=== PATIENT | male | born 1960 | race Caucasian/White ===

== ENCOUNTER 2017-07-15 16:48 | Observation (INO) ==
[2017-07-15 17:46] LABS: Basophils # 0.1 K/mcL (0.0-0.2); Basophils % 0.5 %; Eosinophils # 0.7 K/mcL (0.0-0.6); Eosinophils % 4.8 %; Hematocrit 43.8 % (37.5-50.1); Hemoglobin 14.6 g/dL (12.9-16.9); Immature Granulocytes % 0.2 % (0-4); Lymphocytes # 4.7 K/mcL (0.6-4.6); Lymphocytes % 32.7 %; Mean Corpuscular HGB Conc 33.3 g/dL (31.6-35.5); Mean Corpuscular Hemoglobin 29.4 pg (28.0-33.3); Mean Corpuscular Volume 88.3 fL (83.0-100.0); Monocytes # 0.6 K/mcL (0.0-1.3); Monocytes % 4.4 %; Neutrophils # 8.2 K/mcL (1.6-8.9); Platelet Count 309 K/mcL (140-400); Red Blood Count 4.96 M/mcL (4.19-5.50); Red Cell Distribution Width 13.3 % (11.5-14.5); Segmented Neutrophils % 57.4 %
[2017-07-15 18:01] LABS: BUN/Creatinine Ratio 14 (6-26); Blood Urea Nitrogen 13 mg/dL (6-20); Calcium 9.1 mg/dL (8.6-10.3); Carbon Dioxide 27 mEq/L (23-29); Chloride 106 mEq/L (98-107); Glucose 122 mg/dL (70-105); Osmolality,Calculated 293 (280-300); Sodium 141 mEq/L (136-145); eGFR For African Americans > 60 (> 60); eGFR For Non-African Americans > 60 (> 60)
[2017-07-15] MEDS ORDERED: 0.9 % Sodium Chloride 1,000 ML IVC ONE (19:29)
[2017-07-15] MEDS ORDERED: Ketorolac 15 MG/ML VIAL IVP ONE (19:29)
[2017-07-15] MEDS ORDERED: Metoclopramide 10 MG/2 ML VIAL IVP ONE (19:29)
--- NOTE | 2017-07-15 19:34 | Emergency Department Note ---
Disposition Clinical Impression: Migraine Qualifiers: Migraine type: with aura Status migrainosus presence: without status migrainosus Intractability: not intractable Qualified Code(s): G43.109 - Migraine with aura, not intractable, without status migrainosus Disposition: Home, Self-Care Condition: Good Instructions: Migraine Headache (ED) Prescriptions: Promethazine [Phenergan] 25 mg PO Q6HR PRN #10 tablet PRN Reason: Headache Referrals: Hollis Bledsoe MD [Primary Care Provider] - Fernando Centeno DO [Partnered Physician] - Forms: ED Satisfaction Letter, Work/School Release Time of Disposition: 19:48 General Adult HPI - General Chief complaint: ED Shortness of Breath/Dyspnea Stated complaint: URI symptoms Time Seen by Provider: 07/15/17 19:04 Source: patient Limitations: no limitations Nursing Notes Reviewed: Yes Vital Signs Reviewed: Yes - History of Present Illness HPI Narrative: History of present illness: 1-year-old male history of a spinal implant by Dr. Sheehan within the past year and also a history of cluster headaches and migraines. He has 2 chief complaints #1, he has pain and itching around his implantation stimulator site of his back noticed for the past week or so. No trauma fever chills no discharge no bleeding no weakness or numbness no loss of sensation no change of bowel or bladder habits no other complaints per patient. Additionally he said he also had a cluster headache earlier now has migraine headache frontal component with some temporal radiation mild phonophobia photophobia and nausea but no vomiting. Patient's has slept somebody arranged come pick him up. Discussed with patient that we will give him a migraine cocktail minus the Benadryl since he stated he has an allergy to it. Pain Scale: 0 - Related Data Previous Rx's Medication Instructions Recorded Albuterol Sulfate [Albuterol 2 puff IH Q6HR PRN #1 hfa.aer.ad 07/22/16 Inhaler] Azithromycin [Azithromycin 6-Tab 250 mg PO PER PKG DI #6 tab 07/22/16 Pack] predniSONE [PredniSONE] 60 mg PO DAILY #15 tablet 07/22/16 Acyclovir [Zovirax] 800 mg PO 5XD #35 tablet 08/12/16 Lidocaine Patch [Lidoderm 5% patch] 1 - 3 each TP Q12H PRN #20 08/12/16 adh..patch Promethazine [Phenergan] 25 mg PO Q6HR PRN #10 tablet 07/15/17 Allergies Allergy/AdvReac Type Severity Reaction Status Date / Time Penicillins Allergy Anaphylaxis Verified 08/12/16 08:29 All systems ED: reviewed and negative except as stated. Eyes: Reports: eye pain Neurological: Reports: headache Past Medical History - Past Medical History Attestation: Yes The following information was validated with the patient. Source: patient Medical history: Reports: COPD, diabetes, GERD, other Surgical history: Reports: no surgical history Psychiatric history: Reports: no psych history - Social History Smoking Status: Current every day smoker Smokeless Tobacco Status: No Alcohol use: Reports: occasionally Drug use: Reports: none Physical Exam - General Limitations: no limitations General appearance: alert - Head Head exam: atraumatic, normocephalic - Eye Eye exam: Present: normal appearance, PERRL - ENT ENT exam: normal exam, normal oropharynx - Neck Neck exam: Present: normal inspection, full ROM - Chest Chest inspection: Present: normal inspection, symmetric chest wall rise - Respiratory Respiratory exam: Present: normal lung sounds bilaterally - Cardiovascular Cardiovascular exam: Present: regular rate, normal rhythm - Abdominal Exam Abdominal exam: Present: soft, Non-Tender - Extremities Exam Extremities exam: Present: normal inspection, full ROM - Expanded Lower Extremity Exam Neurovascular/Tendon exam: Present: normal capillary refill Gait: observed and normal - Back Exam Back exam: Present: normal inspection, full ROM - Neurological Exam Neurological exam: Present: alert, oriented X3, CN II-XII intact - Psychiatric Psychiatric exam: Present: normal affect, normal mood - Skin Skin exam: Present: warm, dry, intact, normal color Course - Reevaluation(s) Reevaluation #1: Patient was reassessed headache is improving stable for discharge home will be given referral to Dr. Fernando Centeno from neurology. Will be given a note for work and a prescription for Phenergan. Time: 19:47 Vital Signs Temperature 98.2 F 07/15/17 17:01 Pulse Rate 85 07/15/17 17:01 Respiratory Rate 18 07/15/17 17:01 Blood Pressure 133/78 07/15/17 17:01 O2 Sat by Pulse Oximetry 98 07/15/17 17:01 Temperature 98.2 F 07/15/17 17:01 Pulse Rate 85 07/15/17 17:01 Respiratory Rate 18 07/15/17 17:01 Blood Pressure 133/78 07/15/17 17:01 O2 Sat by Pulse Oximetry 98 07/15/17 17:01 Oxygen Delivery Oxygen Delivery Room Air Medical Decision Making - Lab Data Result diagrams: 07/15/17 17:32 07/15/17 17:32 Lab Results 07/15/17 07/15/17 07/15/17 Range/Units 17:32 17:32 17:32 WBC 14.3 H (4.3-11.1) K/mcL RBC 4.96 (4.19-5.50) M/mcL Hgb 14.6 (12.9-16.9) g/dL Hct 43.8 (37.5-50.1) % MCV 88.3 (83.0-100.0) fL MCH 29.4 (28.0-33.3) pg MCHC 33.3 (31.6-35.5) g/dL RDW 13.3 (11.5-14.5) % Plt Count 309 (140-400) K/mcL MPV 9.0 L (9.4-12.4) fL Immature Gran % 0.2 (0-4) % Seg Neutrophils % 57.4 % Lymphocytes % 32.7 % Monocytes % 4.4 % Eosinophils % 4.8 % Basophils % 0.5 % Neutrophils # 8.2 (1.6-8.9) K/mcL Lymphocytes # 4.7 H (0.6-4.6) K/mcL Monocytes # 0.6 (0.0-1.3) K/mcL Eosinophils # 0.7 H (0.0-0.6) K/mcL Basophils # 0.1 (0.0-0.2) K/mcL Sodium 141 (136-145) mEq/L Potassium 4.0 (3.5-5.1) mEq/L Chloride 106 (98-107) mEq/L Carbon Dioxide 27 (23-29) mEq/L BUN 13 (6-20) mg/dL Creatinine 0.95 (0.70-1.30) mg/dL Est GFR ( Amer) > 60 (> 60) Est GFR (Non-Af Amer) > 60 (> 60) BUN/Creatinine Ratio 14 (6-26) Glucose 122 H (70-105) mg/dL Calculated Osmolality 293 (280-300) Lactic Acid 2.8 H (0.5-2.2) mmol/L Calcium 9.1 (8.6-10.3) mg/dL Troponin I (< 0.04) ng/mL B-Natriuretic Peptide (Less than 100) pg/mL 07/15/17 07/15/17 Range/Units 17:32 17:32 WBC (4.3-11.1) K/mcL RBC (4.19-5.50) M/mcL Hgb (12.9-16.9) g/dL Hct (37.5-50.1) % MCV (83.0-100.0) fL MCH (28.0-33.3) pg MCHC (31.6-35.5) g/dL RDW (11.5-14.5) % Plt Count (140-400) K/mcL MPV (9.4-12.4) fL Immature Gran % (0-4) % Seg Neutrophils % % Lymphocytes % % Monocytes % % Eosinophils % % Basophils % % Neutrophils # (1.6-8.9) K/mcL Lymphocytes # (0.6-4.6) K/mcL Monocytes # (0.0-1.3) K/mcL Eosinophils # (0.0-0.6) K/mcL Basophils # (0.0-0.2) K/mcL Sodium (136-145) mEq/L Potassium (3.5-5.1) mEq/L Chloride (98-107) mEq/L Carbon Dioxide (23-29) mEq/L BUN (6-20) mg/dL Creatinine (0.70-1.30) mg/dL Est GFR ( Amer) (> 60) Est GFR (Non-Af Amer) (> 60) BUN/Creatinine Ratio (6-26) Glucose (70-105) mg/dL Calculated Osmolality (280-300) Lactic Acid (0.5-2.2) mmol/L Calcium (8.6-10.3) mg/dL Troponin I < 0.03 (< 0.04) ng/mL B-Natriuretic Peptide 14 (Less than 100) pg/mL
[2017-07-15] MEDS ORDERED: Ipratropium/Albuterol Neb 3 ML IH ONE (19:56)
[2017-07-15] MEDS ORDERED: predniSONE 20 MG TABLET PO ONE (20:05)
--- NOTE | 2017-07-15 20:16 | Emergency Department Note ---
Disposition Clinical Impression: Community acquired pneumonia Qualifiers: Laterality: unspecified laterality Qualified Code(s): J18.9 - Pneumonia, unspecified organism Disposition: Home, Self-Care Condition: Good Prescriptions: Promethazine [Phenergan] 25 mg PO Q6HR PRN #10 tablet PRN Reason: Headache Forms: Work/School Release Time of Disposition: 20:17 General Adult HPI - General Chief complaint: ED Shortness of Breath/Dyspnea Stated complaint: URI symptoms Time Seen by Provider: 07/15/17 19:04 Source: patient, family Limitations: no limitations Nursing Notes Reviewed: Yes Vital Signs Reviewed: Yes - History of Present Illness HPI Narrative: History of present illness: 57-year-old male per day smoker history of COPD has orthopnea for the past 2 months fevers and chills and weakness. Studies had pneumonia in the past but on no recent antibiotics. Denies chest pain denies leg swelling denies medication changes denies ill contacts clotted for recent travel. Denies headache, photophobia, neck stiffness, nausea or vomiting no change of bowel or bladder habits or skin rash. Seen his primary care provider once or twice within the past month told him that he cannot lie down that he sits up in a chair for the past 2 months to fall asleep. But is just gotten medications. Pain Scale: 0 - Related Data Previous Rx's Medication Instructions Recorded Albuterol Sulfate [Albuterol 2 puff IH Q6HR PRN #1 hfa.aer.ad 07/22/16 Inhaler] Azithromycin [Azithromycin 6-Tab 250 mg PO PER PKG DI #6 tab 07/22/16 Pack] predniSONE [PredniSONE] 60 mg PO DAILY #15 tablet 07/22/16 Acyclovir [Zovirax] 800 mg PO 5XD #35 tablet 08/12/16 Lidocaine Patch [Lidoderm 5% patch] 1 - 3 each TP Q12H PRN #20 08/12/16 adh..patch Promethazine [Phenergan] 25 mg PO Q6HR PRN #10 tablet 07/15/17 Allergies Allergy/AdvReac Type Severity Reaction Status Date / Time Penicillins Allergy Anaphylaxis Verified 08/12/16 08:29 All systems ED: reviewed and negative except as stated. Constitutional: Reports: fever, chills, weakness Cardiovascular: Reports: orthopnea Respiratory: Reports: cough, dyspnea, sputum production Past Medical History - Past Medical History Attestation: Yes The following information was validated with the patient. Source: patient Medical history: Reports: COPD, diabetes, GERD, other Surgical history: Reports: no surgical history Psychiatric history: Reports: no psych history - Social History Smoking Status: Current every day smoker Smokeless Tobacco Status: No Alcohol use: Reports: occasionally Drug use: Reports: none Physical Exam - General Limitations: no limitations General appearance: alert, in distress - Head Head exam: atraumatic, normocephalic - Eye Eye exam: Present: normal appearance, PERRL - ENT ENT exam: normal exam, normal oropharynx - Chest Chest inspection: Present: normal inspection, symmetric chest wall rise - Respiratory Respiratory exam: Present: respiratory distress, wheezes, prolonged expiratory phase - Cardiovascular Cardiovascular exam: Present: regular rate, normal rhythm - Abdominal Exam Abdominal exam: Present: soft, Non-Tender - Extremities Exam Extremities exam: Present: normal inspection, full ROM - Expanded Lower Extremity Exam Neurovascular/Tendon exam: Present: normal capillary refill Gait: observed and normal - Back Exam Back exam: Present: normal inspection - Neurological Exam Neurological exam: Present: alert, oriented X3, CN II-XII intact - Psychiatric Psychiatric exam: Present: normal affect, normal mood - Skin Skin exam: Present: warm, dry, intact Course - Reevaluation(s) Reevaluation #1: Patient's chest x-ray shows multifocal pneumonia. Elevated white count of 14, 000 with left shift and elevated lactic acid of 2.7. A&P and troponin within normal limits. Patient is getting steroids and DuoNeb's. He will get IV Levaquin. Patient be admitted for #1 COPD flare number to community acquired pneumonia. Time: 20:17 Vital Signs Temperature 98.2 F 07/15/17 17:01 Pulse Rate 85 07/15/17 17:01 Respiratory Rate 18 07/15/17 17:01 Blood Pressure 133/78 07/15/17 17:01 O2 Sat by Pulse Oximetry 98 07/15/17 17:01 Temperature 98.2 F 07/15/17 17:01 Pulse Rate 85 07/15/17 17:01 Respiratory Rate 18 07/15/17 17:01 Blood Pressure 133/78 07/15/17 17:01 O2 Sat by Pulse Oximetry 98 07/15/17 17:01 Oxygen Delivery Oxygen Delivery Room Air Medical Decision Making - Lab Data Result diagrams: 07/15/17 17:32 07/15/17 17:32 Lab Results 07/15/17 07/15/17 07/15/17 Range/Units 17:32 17:32 17:32 WBC 14.3 H (4.3-11.1) K/mcL RBC 4.96 (4.19-5.50) M/mcL Hgb 14.6 (12.9-16.9) g/dL Hct 43.8 (37.5-50.1) % MCV 88.3 (83.0-100.0) fL MCH 29.4 (28.0-33.3) pg MCHC 33.3 (31.6-35.5) g/dL RDW 13.3 (11.5-14.5) % Plt Count 309 (140-400) K/mcL MPV 9.0 L (9.4-12.4) fL Immature Gran % 0.2 (0-4) % Seg Neutrophils % 57.4 % Lymphocytes % 32.7 % Monocytes % 4.4 % Eosinophils % 4.8 % Basophils % 0.5 % Neutrophils # 8.2 (1.6-8.9) K/mcL Lymphocytes # 4.7 H (0.6-4.6) K/mcL Monocytes # 0.6 (0.0-1.3) K/mcL Eosinophils # 0.7 H (0.0-0.6) K/mcL Basophils # 0.1 (0.0-0.2) K/mcL Sodium 141 (136-145) mEq/L Potassium 4.0 (3.5-5.1) mEq/L Chloride 106 (98-107) mEq/L Carbon Dioxide 27 (23-29) mEq/L BUN 13 (6-20) mg/dL Creatinine 0.95 (0.70-1.30) mg/dL Est GFR ( Amer) > 60 (> 60) Est GFR (Non-Af Amer) > 60 (> 60) BUN/Creatinine Ratio 14 (6-26) Glucose 122 H (70-105) mg/dL Calculated Osmolality 293 (280-300) Lactic Acid 2.8 H (0.5-2.2) mmol/L Calcium 9.1 (8.6-10.3) mg/dL Troponin I (< 0.04) ng/mL B-Natriuretic Peptide (Less than 100) pg/mL 07/15/17 07/15/17 Range/Units 17:32 17:32 WBC (4.3-11.1) K/mcL RBC (4.19-5.50) M/mcL Hgb (12.9-16.9) g/dL Hct (37.5-50.1) % MCV (83.0-100.0) fL MCH (28.0-33.3) pg MCHC (31.6-35.5) g/dL RDW (11.5-14.5) % Plt Count (140-400) K/mcL MPV (9.4-12.4) fL Immature Gran % (0-4) % Seg Neutrophils % % Lymphocytes % % Monocytes % % Eosinophils % % Basophils % % Neutrophils # (1.6-8.9) K/mcL Lymphocytes # (0.6-4.6) K/mcL Monocytes # (0.0-1.3) K/mcL Eosinophils # (0.0-0.6) K/mcL Basophils # (0.0-0.2) K/mcL Sodium (136-145) mEq/L Potassium (3.5-5.1) mEq/L Chloride (98-107) mEq/L Carbon Dioxide (23-29) mEq/L BUN (6-20) mg/dL Creatinine (0.70-1.30) mg/dL Est GFR ( Amer) (> 60) Est GFR (Non-Af Amer) (> 60) BUN/Creatinine Ratio (6-26) Glucose (70-105) mg/dL Calculated Osmolality (280-300) Lactic Acid (0.5-2.2) mmol/L Calcium (8.6-10.3) mg/dL Troponin I < 0.03 (< 0.04) ng/mL B-Natriuretic Peptide 14 (Less than 100) pg/mL
[2017-07-15] MEDS ORDERED: Levofloxacin 750 MG/150 ML 750 MG/150 ML BAG IVPB ONE (20:18)
[2017-07-15] MEDS ORDERED: Naloxone 0.4 MG/ML INJ IVP PRN (21:59)
[2017-07-15] MEDS ORDERED: Dextrose Gel 15 GM/37.5 ML TUBE PO PRN ×2 (22:01)
[2017-07-15] MEDS ORDERED: D5% in Water 1,000 ML IVC PRN (22:01)
[2017-07-15] MEDS ORDERED: *HR* Dextrose 50 % in Water (Syg) 50 ML SYRINGE IVP PRN (22:01)
[2017-07-15] MEDS ORDERED: Ipratropium/Albuterol Neb 3 ML IH PRN (22:03)
[2017-07-15] MEDS ORDERED: *HR* HYDROcodone/Acet 5/325 mg TABLET PO PRN (22:05)
--- NOTE | 2017-07-15 23:19 | Internal Med History&Physical ---
Date of Encounter: 07/15/17 Time of Encounter: 21:00 Assessment and Plan (1) Community acquired pneumonia Current visit: Yes Status: Acute Chest x-ray shows multifocal pneumonia or pulmonary edema. BNP is negative. Patient has leukocytosis, Consider pneumonia. Continue Levaquin IV. Continue symptomatic treatment as needed Qualifiers: Laterality: unspecified laterality Qualified Code(s): J18.9 - Pneumonia, unspecified organism (2) COPD exacerbation Current visit: Yes Status: Acute Patient has a history of COPD. Patient has increased shortness of breath with bilateral wheezing. Consider COPD exacerbation. - Place patient on antibiotic, steroid, and bronchodilator - Oxygen supportive treatment. (3) Hemoptysis Current visit: Yes Status: Acute Probably due to cough because by pneumonia. However patient is a smoker, need to rule out lung malignancy. Will order CT chest. We will also consult pulmonology for further management. (4) Diabetes Current visit: Yes Status: Acute Patient uses metformin at home. 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 insulin use: without custodial use Qualified Code(s): E11.9 - Type 2 diabetes mellitus without complications (5) BPH (benign prostatic hyperplasia) Current visit: Yes Status: Acute Continue home medications Qualifiers: Lower urinary tract symptom presence: symptoms absent Qualified Code(s): N40.0 - Benign prostatic hyperplasia without lower urinary tract symptoms (6) GERD (gastroesophageal reflux disease) Current visit: Yes Status: Acute We will continue home PPI Qualifiers: Esophagitis presence: esophagitis presence not specified Qualified Code(s) : K21.9 - Gastro-esophageal reflux disease without esophagitis (7) Tobacco abuse Current visit: Yes Status: Acute Smoking cessation education. Place patient on nicotine patch (8) DVT prophylaxis Current visit: Yes Status: Acute EPCD. No anticoagulation because of hemoptysis Internal Medicine - H&P: HPI Chief complaint: Shortness of breath Admitted From: Home Plans for Post Hospital Care: Home History of present illness: Mr. Lainez is a 57 year old male with history of COPD, diabetes, BPH, GERD, presented to ER for shortness of breath. Patient said he has shortness of breath on and off for about 2 months. Patient has increased the cough and has spit a little blood today for once. Patient said the bladder is bright red mixed with yellowish/greenish sputum. Patient has on and off fever. He denies chest pain, runny nose, sore throat, or nausea. In emergency room, chest x-ray shows multifocal pneumonia. Patient was admitted as a community acquired pneumonia and COPD exacerbation. Past Med Surg Social Fam HX - Past Medical History Medical history: COPD, diabetes, GERD, other Psychiatric history: no psych history - Past Surgical History Surgical History: no surgical history - Social History Smoking Status: Current every day smoker Smokeless Tobacco Status: No Alcohol use: occasionally Drug use: none - Family History Mother Hx Family Cardiac Disorders: Yes ([place], Stroke) Father Hx Family Cancer: Yes Internal Medicine - H&P: Meds Albuterol Sulfate [Ventolin Hfa] 2 puff IH Q4H PRN 07/15/17 [History] Finasteride [Proscar] 5 mg PO DAILY 07/15/17 [History] HYDROcodone/Acet 5/325 mg [[place] 5-325 mg] 1 tab PO Q6H PRN 07/15/17 [History] Linaclotide [Linzess] 290 mcg PO QAM 07/15/17 [History] Metformin HCl [Glucophage] 1,000 mg PO BID 07/15/17 [History] Montelukast [Singulair] 10 mg PO DAILY 07/15/17 [History] Pantoprazole Sodium [Pantoprazole Sodium] 40 mg PO DAILY 07/15/17 [History] Promethazine [Phenergan] 25 mg PO Q6HR PRN #10 tablet 07/15/17 [Rx] Tamsulosin [Flomax] 0.4 mg PO DAILY 07/15/17 [History] 3 Allergy/AdvReac Type Severity Reaction Status Date / Time Penicillins Allergy Anaphylaxis Verified 08/12/16 08:29 All Systems PM: A 10-system review of systems was performed and is negative for pertinent findings except as documented above in the HPI. - Constitutional Vitals: Temp Pulse Resp BP Pulse Ox 98.2 F 79 16 141/81 96 07/15/17 17:01 07/15/17 21:06 07/15/17 22:07 07/15/17 22:07 07/15/17 21:06 General appearance: Present: A&O X 3, no acute distress, answers questions appropriately - Head Head exam: Present: atraumatic, normocephalic - Eye Eye exam: Present: PERRL, conjuntiva pink, sclera anicteric Pupils: Present: PERRL - Neck Neck exam general surgery: Present: supple, trachea midline. Absent: lymphadenopathy - Respiratory Respiratory exam: Present: CTAB, wheezes (Scattered wheezes bilaterally). Absent: accessory muscle use, rales, rhonchi - Cardiovascular Cardiovascular exam: Present: RRR, +S1, +S2. Absent: diastolic murmur, gallop, rubs, systolic murmur - GI/Abdominal GI/Abdominal exam: Present: normal bowel sounds, soft, no peritoneal signs. Absent: distended, tenderness - Extremities Exam Extremities exam: Present: warm, radial pulses palpable and symmetrical. Absent : calf tenderness, cyanotic, pedal edema - Neurological Exam Neurological exam: Present: CN II-XII intact, oriented X3, no focal deficits. Absent: pronater drift, facial droop, speech deficit - Skin Skin exam: Present: dry, intact Internal Med - H&P Results - Labs CBC & Chem 7: 07/15/17 17:32 07/15/17 17:32 - EKG Data -: EKG Interpreted by Myself EKG shows normal: sinus rhythm Rate: normal
[2017-07-16] MEDS: Nicotine 21 MG PATCH.TD24 TD SCH ×2 (01:13→08:06)
[2017-07-16] MEDS: Ipratropium/Albuterol Neb 3 ML IH SCH ×2 (04:01→10:25)
[2017-07-16 05:00] LABS: Basophils % 0.3 %; Eosinophils % 0.3 %; Hematocrit 41.4 % (37.5-50.1); Hemoglobin 13.5 g/dL (12.9-16.9); Immature Granulocytes % 0.4 % (0-4); Lymphocytes # 1.4 K/mcL (0.6-4.6); Lymphocytes % 18.5 %; Mean Corpuscular HGB Conc 32.6 g/dL (31.6-35.5); Mean Corpuscular Hemoglobin 28.9 pg (28.0-33.3); Mean Corpuscular Volume 88.7 fL (83.0-100.0); Mean Platelet Volume 9.4 fL (9.4-12.4); Monocytes # 0.1 K/mcL (0.0-1.3); Neutrophils # 5.8 K/mcL (1.6-8.9); Platelet Count 296 K/mcL (140-400); Red Blood Count 4.67 M/mcL (4.19-5.50); Red Cell Distribution Width 13.3 % (11.5-14.5); Segmented Neutrophils % 79.5 %
[2017-07-16 05:12] LABS: Hemoglobin A1C 7.4 %
[2017-07-16 05:28] LABS: BUN/Creatinine Ratio 17 (6-26); Blood Urea Nitrogen 17 mg/dL (6-20); Calcium 8.8 mg/dL (8.6-10.3); Carbon Dioxide 24 mEq/L (23-29); Chloride 106 mEq/L (98-107); Glucose 269 mg/dL (70-105); Magnesium 1.8 mg/dL (1.6-2.6); Osmolality,Calculated 295 (280-300); Sodium 137 mEq/L (136-145); eGFR For African Americans > 60 (> 60); eGFR For Non-African Americans > 60 (> 60)
[2017-07-16 07:00] VITALS: BP 135/83
[2017-07-16] MEDS ORDERED: Insulin LISPRO 300 UNITS/3 ML VIAL SQ SCH ×2 (07:30→21:00)
--- NOTE | 2017-07-16 07:57 | Pulmonology Consult Note ---
Date of Encounter: 07/16/17 Time of Encounter: 07:57 History of Present Illness Consult date: 07/16/17 Requesting physician: Shimon Salas Reason for consult: pneumonia Chief complaint: Difficulty in Breathing Past Med Surg Social Fam HX - Past Medical History Medical history: COPD, diabetes, GERD, other Psychiatric history: no psych history - Past Surgical History Surgical History: no surgical history - Social History Smoking Status: Current every day smoker Smokeless Tobacco Status: No Alcohol use: occasionally Drug use: none - Family History Mother Hx Family Cardiac Disorders: Yes ([place], Stroke) Father Hx Family Cancer: Yes Medications and Allergies Albuterol Sulfate [Ventolin Hfa] 2 puff IH Q4H PRN 07/15/17 [History] Finasteride [Proscar] 5 mg PO DAILY 07/15/17 [History] HYDROcodone/Acet 5/325 mg [[place] 5-325 mg] 1 tab PO Q6H PRN 07/15/17 [History] Linaclotide [Linzess] 290 mcg PO QAM 07/15/17 [History] Metformin HCl [Glucophage] 1,000 mg PO BID 07/15/17 [History] Montelukast [Singulair] 10 mg PO DAILY 07/15/17 [History] Pantoprazole Sodium [Pantoprazole Sodium] 40 mg PO DAILY 07/15/17 [History] Promethazine [Phenergan] 25 mg PO Q6HR PRN #10 tablet 07/15/17 [Rx] Tamsulosin [Flomax] 0.4 mg PO DAILY 07/15/17 [History] 3 Allergy/AdvReac Type Severity Reaction Status Date / Time Penicillins Allergy Anaphylaxis Verified 08/12/16 08:29 All Systems: A 10-system review of systems was performed and is negative for pertinent findings except as documented above in the HPI. Physical Examination Vital Signs: Vital Signs, Last 4 Hours Temp Pulse Resp BP Pulse Ox 07/16/17 06:59 97.5 F L 80 18 135/83 97 07/16/17 04:02 16 96 Results - Laboratory Findings CBC and BMP: 07/16/17 04:34 07/16/17 04:34 Abnormal lab findings: Abnormal lab results Glucose 269 mg/dL (70-105) H 07/16/17 04:34 Hemoglobin A1c 7.4 % (-5.6) H 07/16/17 04:34 Lactic Acid 2.8 mmol/L (0.5-2.2) H 07/15/17 17:32 - Clinical Findings Intake & Output: Intake & Output 07/15/17 07/15/17 07/16/17 15:59 23:59 07:59 Intake Total 1000 / 1000 Balance 1000 / 1000 Consult Discharge Plan - Plan Referrals: Hollis Bledsoe MD [Primary Care Provider] -
[2017-07-16] MEDS ORDERED: Finasteride 5 MG TABLET PO SCH (09:00)
[2017-07-16] MEDS ORDERED: predniSONE 20 MG TABLET PO SCH (09:00)
--- NOTE | 2017-07-16 10:02 | Internal Med Progress Note ---
Date of Encounter: 07/16/17 Time of Encounter: 10:02 - Constitutional Vitals: Temp Pulse Resp BP Pulse Ox 97.5 F L 80 18 135/83 97 07/16/17 06:59 07/16/17 06:59 07/16/17 06:59 07/16/17 06:59 07/16/17 06:59 General appearance: Present: A&O X 3, no acute distress, answers questions appropriately Internal Medicine: Result - Labs CBC & Chem 7: 07/16/17 04:34 07/16/17 04:34 Labs: Short CBC 07/16/17 Range/Units 04:34 WBC 7.3 (4.3-11.1) K/mcL Hgb 13.5 (12.9-16.9) g/dL Hct 41.4 (37.5-50.1) % Plt Count 296 (140-400) K/mcL Neutrophils # 5.8 (1.6-8.9) K/mcL BMP 07/16/17 04:34 Sodium 137 Potassium 4.0 Chloride 106 Carbon Dioxide 24 BUN 17 Creatinine 0.98 Glucose 269 H Calcium 8.8 - Impressions Impressions Chest CT 07/15/17 22:04 IMPRESSION: Multiple bibasilar nodules. Differential considerations include infectious, inflammatory, and neoplastic etiologies. Follow-up CT chest with IV contrast recommended within 3 months. D/ / Gurjit Espinoza MD / Gurjit Espinoza MD Interpreting Provider: Gurjit Espinoza MD Consult Discharge Plan - Plan Referrals: Hollis Bledsoe MD [Primary Care Provider] -
--- NOTE | 2017-07-16 11:11 | Discharge Summary ---
Date of Encounter: 07/25/17 Time of Encounter: 10:00 - Discharge Diagnosis (1) Community acquired pneumonia Priority: Primary Status: Acute Comments: Chest x-ray shows multifocal pneumonia or pulmonary edema. BNP is negative. Patient has leukocytosis, Consider pneumonia. He was given IV levaquin Not on any O2 support st this time SpO2 96-97% on RA will continue with Levaquin oral Have patient follow up with PCP in one week Qualifiers: Laterality: unspecified laterality Qualified Code(s): J18.9 - Pneumonia, unspecified organism (2) COPD exacerbation Priority: Secondary Status: Acute Comments: patient with wheezing on presentation, presently lung mas are clear, no O2 support, states breathing easier will continue with bronchodilators levaquinx 5 days and steroid taper (3) Hemoptysis Priority: Secondary Status: Acute Comments: CT of chest completed : Multiple bibasilar nodules. Differential considerations include infectious, inflammatory, and neoplastic etiologies. Will have patient follow up CT chest IV contrast as outpatient as advised (4) Tobacco abuse Priority: Secondary Status: Chronic Comments: I did college counselor patient concerning smoking cessation, nicotine patch offered which patient accepted will send home on nicotine patch patient to follow up with PCP - Discharge Medications Prescriptions: Albuterol Sulfate [Ventolin Hfa] 2 puff IH Q4H PRN #1 hfa.aer.ad PRN Reason: Shortness Of Breath levoFLOXacin [Levaquin] 750 mg PO DAILY #5 tablet Nicotine Patch [Nicoderm] 21 mg TD DAILY #30 patch.td24 predniSONE [PredniSONE] 10 mg PO DAILY #20 tablet Home Medications: Finasteride [Proscar] 5 mg PO DAILY 07/15/17 [History] Linaclotide [Linzess] 290 mcg PO QAM 07/15/17 [History] Metformin HCl [Glucophage] 1,000 mg PO BID 07/15/17 [History] Montelukast [Singulair] 10 mg PO DAILY 07/15/17 [History] Pantoprazole Sodium 40 mg PO DAILY 07/15/17 [History] Promethazine [Phenergan] 25 mg PO Q6HR PRN #10 tablet 07/15/17 [Rx] Tamsulosin [Flomax] 0.4 mg PO DAILY 07/15/17 [History] Albuterol Sulfate [Ventolin Hfa] 2 puff IH Q4H PRN #1 hfa.aer.ad 07/16/17 [Rx] Nicotine Patch [Nicoderm] 21 mg TD DAILY #30 patch.td24 07/16/17 [Rx] levoFLOXacin [Levaquin] 750 mg PO DAILY #5 tablet 07/16/17 [Rx] predniSONE [PredniSONE] 10 mg PO DAILY #20 tablet 07/16/17 [Rx] Allergies/Adverse Reactions: 3 Allergy/AdvReac Type Severity Reaction Status Date / Time Penicillins Allergy Anaphylaxis Verified 08/12/16 08:29 Procedures/tests Complete & Pending: Procedures Performed prior 72 hours Category Date Time Status CT chest w/o contrast [CT chest wo con] [CT] Routine Cat Scan 07/15/17 22:04 Completed Date of admission: 07/15/17 21:23 Primary care physician: Hollis Bledsoe, Consults: 07/15/17 22:05 Consult to Pulmonology [CONS] Routine Consulting Provider: [facility] Reason for Consult: Hemoptysis Call Completed: Yes Discharging clinician: Nikki Zamora Anticipated date of discharge: 07/16/17 - Patient Status Disposition: Home, Self-Care Condition: Good Functional capacity at discharge: independent ambulation Overall status at discharge: patient is progressing back to baseline - Discharge Instructions Instructions: Chronic Obstructive Pulmonary Disease (DC), Pneumonia (DC) Follow Up With: Hollis Bledsoe MD [Primary Care Provider] - (Please call office tomorrow , 07/17/17, to schedule a follow up appointment. Appointment needs to be 7-10 days from today.) - Diet and Activity Activity: increase activity as tolerated Diet: diabetic diet Hospital course: Mr. Lainez is a 57 year old male with history of COPD, diabetes, BPH, GERD, presented to ER for shortness of breath. He is non oxygen dependent , he is chronically SOB however past few days he has had increasing SOB cough and cough up bright red blood X1. He admits to subjective fever. CXR showed multifocal pneumonia, CT of chest with multiple bibasilar nodules- possible infection inflammatory or neoplastic etiology. Patient was admitted given breathing tx steroids and levaquin IV. Presently he respiratory state has improved, his O2 sats stable at 97% on RA sitting and walking. I personally examined reviewed medications and follow up appointments with patient. He is hemodynamically stable at this time and is ready for discharge Time spent discussing smoking cessation with patient: 3 to 10 minutes - Time Spent with Patient Total time spent providing and/or coordinating discharge services: Less than 30 minutes - Constitutional Vitals: Temp Pulse Resp BP Pulse Ox 97.5 F L 80 18 135/83 98 07/16/17 06:59 07/16/17 06:59 07/16/17 10:26 07/16/17 06:59 07/16/17 10:26 General appearance: Present: A&O X 3, no acute distress, answers questions appropriately - Head Head exam: Present: atraumatic, normocephalic - Eye Eye exam: Present: PERRL, conjuntiva pink, sclera anicteric Pupils: Present: PERRL - Neck Neck exam general surgery: Present: supple, trachea midline. Absent: lymphadenopathy - Respiratory Respiratory exam: Present: CTAB. Absent: accessory muscle use, rales, rhonchi, wheezes - Cardiovascular Cardiovascular exam: Present: RRR, +S1, +S2. Absent: diastolic murmur, gallop, rubs, systolic murmur - GI/Abdominal GI/Abdominal exam: Present: normal bowel sounds, soft, no peritoneal signs. Absent: distended, tenderness - Extremities Exam Extremities exam: Present: warm, radial pulses palpable and symmetrical. Absent : calf tenderness, cyanotic, pedal edema - Neurological Exam Neurological exam: Present: CN II-XII intact, oriented X3, no focal deficits. Absent: pronater drift, facial droop, speech deficit - Skin Skin exam: Present: dry, intact
--- NOTE | 2017-07-16 12:49 | Pulmonology Consult Note ---
Date of Encounter: 07/16/17 Time of Encounter: 12:30 Past Med Surg Social Fam HX - Past Medical History Medical history: COPD, diabetes, GERD, other Psychiatric history: no psych history - Past Surgical History Surgical History: no surgical history - Social History Smoking Status: Current every day smoker Smokeless Tobacco Status: No Alcohol use: occasionally Drug use: none - Family History Mother Hx Family Cardiac Disorders: Yes ([place], Stroke) Father Hx Family Cancer: Yes Medications and Allergies Albuterol Sulfate [Ventolin Hfa] 2 puff IH Q4H PRN 07/15/17 [History] Finasteride [Proscar] 5 mg PO DAILY 07/15/17 [History] Linaclotide [Linzess] 290 mcg PO QAM 07/15/17 [History] Metformin HCl [Glucophage] 1,000 mg PO BID 07/15/17 [History] Montelukast [Singulair] 10 mg PO DAILY 07/15/17 [History] Pantoprazole Sodium 40 mg PO DAILY 07/15/17 [History] Promethazine [Phenergan] 25 mg PO Q6HR PRN #10 tablet 07/15/17 [Rx] Tamsulosin [Flomax] 0.4 mg PO DAILY 07/15/17 [History] Nicotine Patch [Nicoderm] 21 mg TD DAILY #30 patch.td24 07/16/17 [Rx] levoFLOXacin [Levaquin] 750 mg PO DAILY #5 tablet 07/16/17 [Rx] predniSONE [PredniSONE] 10 mg PO DAILY #20 tablet 07/16/17 [Rx] 3 Allergy/AdvReac Type Severity Reaction Status Date / Time Penicillins Allergy Anaphylaxis Verified 08/12/16 08:29 All Systems: A 10-system review of systems was performed and is negative for pertinent findings except as documented above in the HPI. Physical Examination Vital Signs: Vital Signs, Last 4 Hours Resp Pulse Ox 07/16/17 10:26 18 98 Results - Laboratory Findings CBC and BMP: 07/16/17 04:34 07/16/17 04:34 Abnormal lab findings: Abnormal lab results Glucose 269 mg/dL (70-105) H 07/16/17 04:34 Hemoglobin A1c 7.4 % (-5.6) H 07/16/17 04:34 Lactic Acid 2.8 mmol/L (0.5-2.2) H 07/15/17 17:32 - Clinical Findings Intake & Output: Intake & Output 07/15/17 07/16/17 07/16/17 23:59 07:59 15:59 Intake Total 1000 / 1000 360 / 360 Balance 1000 / 1000 360 / 360 Consult Discharge Plan - Plan Instructions: Chronic Obstructive Pulmonary Disease (DC), Pneumonia (DC) Referrals: Hollis Bledsoe MD [Primary Care Provider] - Prescriptions: levoFLOXacin [Levaquin] 750 mg PO DAILY #5 tablet Nicotine Patch [Nicoderm] 21 mg TD DAILY #30 patch.td24 predniSONE [PredniSONE] 10 mg PO DAILY #20 tablet
[2017-07-16] MEDS ORDERED: FLUARIX QUAD 2017-18 36MOS UP/PF 0.5 ML SYRINGE IM ONE (12:51)
--- NOTE | 2017-07-16 19:38 | Electrocardiograph Report ---
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
[2017-07-16] MEDS ORDERED: Levofloxacin 750 MG/150 ML 750 MG/150 ML BAG IVPB SCH (22:00)
== END 2017-07-16 13:30 | disposition home or self-care (01) ==
LOC: 2ANU 16:48 → EMEROO 16:48 → 2ANU 22:09
PROVIDERS: ADMIT Internal Medicine; ATTEND Family Medicine